=== PATIENT | female | born 1990 | race Caucasian/White ===

== ENCOUNTER 2017-06-25 16:18 | Emergency (ER) | payer OTHER, SELFPAY ==
[2017-06-25 16:34] VITALS: BP 138/53; PULSE 87; RESP 20; TEMP 37.2; O2SAT 98; BMI 29.8
--- NOTE | 2017-06-25 16:43 | HMH.EDGENADL ---
ED Disposition Clinical Impression: Vaginal bleeding Disposition: Home, Self-Care Condition on Discharge: Good Instructions: DI for Vaginal Bleeding Referrals: Hector Obando [Primary Care Provider] - Sandeep Sprague MD [Staff Physician] - (As arranged) - Critical Care Critical Care Time: No Attestation: On 06/25/17, the high probability of a clinically significant, sudden or life threatening deterioration of the following system(s) required my full and direct attention, intervention and personal management. The time I documented below is in addition to time spent performing reported procedures but includes the following listed in this critical care notation. Medical Decision Making Vital Signs: 06/25/17 16:34 Temperature 98.9 F Temperature Source Oral Pulse Rate [Right Radial] 87 Respiratory Rate 20 Blood Pressure [Right Arm] 138/53 Blood Pressure Mean [Right Arm] 81 Blood Pressure Source [Right Arm] Automatic Cuff Blood Pressure Position [Right Arm] Sitting 02 Sat by Pulse Oximetry 98 Oxygen Delivery Method Room Air - Lab Data Lab Results 06/25/17 16:55: WBC 6.6, RBC 5.10, Hgb 15.7, Hct 47.9 H, MCV 93.9, MCH 30.8, MCHC 32.8, RDW 12.2, Plt Count 271, MPV 7.4, Neut % (Auto) 45.3, Lymph % (Auto) 43.8, [place] % (Auto) 4.1, Eos % (Auto) 6.3, Baso % (Auto) 0.6, Neut # (Auto) 3.0, Lymph # (Auto) 2.9, [place] # (Auto) 0.3, Eos # (Auto) 0.4, Baso # (Auto) 0.0 06/25/17 16:55: Sodium 141, Potassium 3.8, Chloride 107, Carbon Dioxide 25, Anion Gap 12.8, BUN 14, Creatinine 0.77, Estimated Creat Clear 123, Estimated GFR 89, Est GFR ( Amer) 108, Glucose 117 H, Calcium 8.7, Total Bilirubin 0.1 L, AST 14 L, ALT 34, Alkaline Phosphatase 65, Total Protein 7.9, Albumin 3.8, Globulin 4.1 H, Albumin/Globulin Ratio 0.9 L 06/25/17 16:55: HCG, Quant 0 06/25/17 17:05: Urine HCG, Qual Negative Result diagrams: 06/25/17 16:55 06/25/17 16:55 - Crow Inquiry Pt receiving controlled substance: No Medical Decision Making Narrative: The patient has a quantitative beta hCG of 0. I discussed with her that there is not a definitive way to determine whether she had been and miscarried. Advised her to obtain her records from [facility] to see what testing had been done for at that time. General Adult HPI - General Chief complaint: Vaginal Bleeding Stated complaint: Preg, bleeding, cramping Mode of Arrival: Ambulatory Limitations: No Limitations Description of Symptoms (Recalled from ER Triage Doc. by RN): Patient states that she was and that last week on , she started having cramping and expelled a large amount of blood and mucus and had bleeding for about a week after that. - History of Present Illness HPI narrative: The patient had gallbladder surgery 3 weeks ago. At that time she says they did a urine test at [facility] and told her that she might be , but that she needed the gallbladder surgery anyway. She says she did not have a pelvic ultrasound or other testing. She did 4 home tests after that and they all were indeterminate, the most recent was 2 weeks ago. 6 days ago she had passage of a large clot and mucus and has been bleeding since then. She is call Dr. Sprague who advised her that she might have had a miscarriage and she has arranged follow-up. If she was at this time, she would be 4, para 1, Ab2. She is having some mild pelvic cramping. - Related Data Allergies Allergy/AdvReac Type Severity Reaction Status Date / Time latex [LATEX] Allergy Unknown Unverified 04/08/17 15:39 Sulfa (Sulfonamide Allergy Unknown Unverified 04/08/17 15:39 Antibiotics) [SULFA (SULFONAMIDE ANTIBIOTICS)] [facility] History I have reviewed the patient's past medical history: Yes - Social History Alcohol Intake: never - Psychiatric History Expresses thoughts of harming self/others: None Suicide Plan Descript
[2017-06-25 17:12] LABS: Urine Pregnancy, HCG Qual. Negative (Negative)
[2017-06-25 17:24] LABS: HCG,Quantitative 0 mIU/mL
[2017-06-25 17:32] LABS: Basophils % 0.6 % (0.1-2.0); Eosinophils # 0.4 K/mm3 (0.0-0.4); Eosinophils % 6.3 % (0.1-12.0); Hematocrit 47.9 % (37.0-47.0); Hemoglobin 15.7 g/dL (12.2-16.2); Lymphocytes # 2.9 K/mm3 (0.7-4.5); Lymphocytes % 43.8 K/mm3 (10-50); Mean Corpuscular HGB Conc 32.8 g/dL (31.8-35.4); Mean Corpuscular Hemoglobin 30.8 pg (27.0-31.2); Mean Corpuscular Volume 93.9 fl (81-99); Mean Platelet Volume 7.4 fl (7.4-10.4); Monocytes # 0.3 K/mm3 (0.1-1.0); Monocytes % 4.1 % (1.7-9.3); Neutrophils % 45.3 % (37.0-80.0); Platelet Count 271 K/mm3 (142-424); Red Cell Distribution Width 12.2 % (11.5-17.5); White Blood Count 6.6 K/mm3 (4.8-10.8)
[2017-06-25 17:35] LABS: Alanine Aminotransferase 34 U/L (12-78); Albumin Level 3.8 gm/dL (3.4-5.0); Albumin/Globulin Ratio 0.9 (1.1-1.8); Alkaline Phosphatase 65 U/L (46-116); Anion Gap 12.8 mEq/L (5-15); Aspartate Amino Transferase 14 U/L (15-37); Bilirubin,Total 0.1 mg/dL (0.2-1.0); Blood Urea Nitrogen 14 mg/dL (7-18); Calcium 8.7 mg/dL (8.5-10.1); Carbon Dioxide 25 mmol/L (21.0-32.0); Chloride 107 mmol/L (98-107); Creatinine Clearance Estimated 123 mL/min (0-300); Creatinine,Serum 0.77 mg/dL (0.55-1.02); Estimated Glomerular Filt Rate 89 ml/min (>60); GFR (African American) 108 ML/MIN (>60); Globulin 4.1 gm/dl (1.3-3.2); Glucose 117 mg/dL (74-106); Potassium 3.8 mmoL/L (3.5-5.1); Sodium 141 mmol/L (136-145); Total Protein,Serum 7.9 gm/dL (6.4-8.2)
[2017-06-25 17:56] VITALS: BP 116/66; PULSE 78; RESP 20; O2SAT 100
[2017-06-25 18:03] VITALS: BP 110/66; PULSE 80; RESP 20; TEMP 36.7; O2SAT 98
--- NOTE | 2017-06-25 18:05 | PC.NURSE ---
JJ BISHOP spoke with Dr. Montalvo at this time.
== END 2017-06-25 18:09 | disposition home or self-care (01) ==
PROVIDERS: Emergency Provider Emergency Medicine; Family Provider Family Medicine; PCP Family Medicine
DX: N93.9 Abnormal uterine and vaginal bleeding, unspecified (principal); R10.30 Lower abdominal pain, unspecified; Z88.2 Allergy status to sulfonamides; Z91.040 Latex allergy status
CPT/HCPCS: 80053; 81025; 84702; 85025; 99283

== ENCOUNTER → 2018-11-11 10:02 | Outpatient (CLI) | payer OTHER, SELFPAY ==
--- NOTE | 2018-11-11 10:12 | US_ITS ---
US transvaginal HISTORY: ITS.REASON: US T/V- Heavy Bleeding ORDERING PHYSICIAN: Sandeep Sprague MD PATIENT AGE: 27 years Comparison: None FINDINGS: Uterus measures 8.2 x 3.1 x 4.3 cm. Endometrial thickness is 3.2 mm. In the cervix area there are several small anechoic foci suggesting nabothian cysts. There is no cul-de-sac fluid. Left ovary is 2.4 x 1.4 x 1.9 cm with a few small follicles and normal blood flow. Right ovary is 2.6 x 1.6 x 2.6 cm with a a few small follicles and normal blood flow. Impression: Bilateral ovarian follicles. Several small nabothian cysts. No acute process.
== END ==
PROVIDERS: PCP Family Medicine; Visit Provider Nurse Practitioner Obstetrics & Gynecology
DX: N93.8 Other specified abnormal uterine and vaginal bleeding (principal)
CPT/HCPCS: 76830

== ENCOUNTER 2019-10-25 16:54 | Emergency (ER) | payer OTHER, SELFPAY ==
[2019-10-25 17:13] VITALS: BP 138/85; PULSE 92; RESP 19; TEMP 36.8; O2SAT 98; BMI 29.2
--- NOTE | 2019-10-25 17:18 | HMH.EDUTC ---
[facility] [place] Disposition Clinical Impression: Encounter for laboratory testing for COVID-19 virus Allergic rhinitis Qualifiers: Allergic rhinitis trigger: unspecified Allergic rhinitis seasonality: unspecified Qualified Code(s): J30.9 - Allergic rhinitis, unspecified Disposition: Home, Self-Care Condition on Discharge: Good Instructions: Mometasone Nasal [place], Preventing the Spread of Coronavirus Discharge Instructions Additional Instructions: *Monitor Temp, Over the counter Motrin or Tylenol as directed/as needed Tylenol every 4 hours and Motrin every 6 hours (as long as your family doctor has told you that you can take it) for fever or pain. and straight to ER if unable to lower temp less than 101.0 after medication given *Warm salt water gargles may help to soothe the throat *Throat Lozenges *Warm fluids like tea with honey may help to soothe the throat *Sleep elevated *Humidifier/Vaporizer *Nasonex 2 sprays in each nostril daily but be aware that it may take 2-3 days before you notice improvement Call back to [facility] on Fri to see if your Covid testing results are back and results no work until negative test Go home and self quarantine until negative result Follow up IMMEDIATELY for new or worsening symptoms or no Noticeable improvement over the next 48-72 hours. 911 for difficulty breathing or swallowing Prescriptions: Mometasone Furoate [Nasonex] 2 sprays NS DAILY #1 spray.pump Transmission Status: Received by [facility] Referrals: Hector Obando [Primary Care Provider] - As needed Forms: Work/School Release Medical Decision Making - Crow Inquiry Pt receiving controlled substance: No Crow was queried for this patient: No Vital Signs: 10/25/19 17:13 10/25/19 17:55 Temperature 98.3 F 98.3 F Temperature Source Oral Pulse Rate 92 H Pulse Rate [Right Brachial] 92 H Respiratory Rate 19 19 Blood Pressure 138/85 Blood Pressure [Right Arm] 138/85 Blood Pressure Mean [Right Arm] 102 Blood Pressure Source [Right Arm] Automatic Cuff Blood Pressure Position [Right Arm] Sitting 02 Sat by Pulse Oximetry 98 Oxygen Delivery Method Room Air Orders (Tests/Meds): ORDERS Category Date Time Status SARS-CoV-2, REN Stat Lab 10/25/19 17:20 Received [facility] [place] HPI - General Stated complaint: Wants COVID test Time Seen by Provider: 10/25/19 17:18 Mode of Arrival: Ambulatory Source of Information: Patient Limitations: No Limitations Description of Symptoms (Recalled from Triage Doc. by RN): PATIENT STATES SHE IS NEEDING A COVID-19 TEST TO RETURN TO WORK AFTER VACATION TO [place]; DENIES ANY SYMPTOMS HEENT Symptoms (Recalled from RN notes): No Resp Symptoms (Recalled from RN notes): No Skin Symptoms (Recalled from RN notes): No MS Symptoms (Recalled from RN notes): No Functional Status (Recalled from RN notes): WNL - History of Present Illness Provider Complaint: Patient states that she recently got back from vacation in [place] and has sesonal allergies States that she has been having clear drainage from her nose and her boss at work states that she cannot return to work without getting tested for COVID State that she isnt having any symptoms, denies fever, denies sore throat States that she is an everyday smoker and has smokers cough. - Related Data Home Medications Medication Instructions Recorded Confirmed Omeprazole [Omeprazole 40mg 40 mg PO BID 08/16/17 11/23/18 Capsule] cyclobenzaprine 10 mg tablet PO #30 tab 11/11/18 11/23/18 meclizine 25 mg tablet 25 mg PO DAILY PRN 11/11/18 11/23/18 phentermine 37.5 mg tablet 37.5 mg PO DAILY 11/11/18 11/23/18 ranitidine HCl 300 mg capsule 300 mg PO DAILY 11/11/18 11/23/18 sumatriptan succinate 100 mg tablet 100 mg PO Q2H PRN 11/11/18 11/23/18 topiramate 100 mg tablet 100 mg PO BID 11/11/18 11/23/18 venlafaxine 150 mg PO #30 cap 11/11/18 11/23/18 capsule,extended release 24 hr Previous Rx's Medication Instructions Recorde
[2019-10-25 17:55] VITALS: BP 138/85; PULSE 92; RESP 19; TEMP 36.8; O2SAT 98
[2019-10-27 13:22] LABS: Covid-19 Nasal PCR Sendout Lex NOT DETECTED
== END 2019-10-25 17:58 | disposition home or self-care (01) ==
PROVIDERS: Emergency Provider Nurse Practitioner; PCP Family Medicine
DX: Z03.818 Encounter for observation for suspected exposure to other biological agents ruled out (principal); J30.9 Allergic rhinitis, unspecified; Z88.2 Allergy status to sulfonamides; Z91.040 Latex allergy status; F17.210 Nicotine dependence, cigarettes, uncomplicated
CPT/HCPCS: 99201; U0004

== ENCOUNTER → 2021-02-02 15:25 | Outpatient (CLI) | payer OTHER, SELFPAY | PROVIDERS: PCP Family Medicine; Visit Provider Nurse Practitioner | DX: Z20.822 Contact with and (suspected) exposure to COVID-19 (principal); U07.1 COVID-19 | CPT/HCPCS: C9803; U0003; U0005 ==

== ENCOUNTER → 2021-04-12 09:03 | Outpatient (CLI) | payer OTHER, SELFPAY | PROVIDERS: Visit Provider Nurse Practitioner | DX: Z20.822 Contact with and (suspected) exposure to COVID-19 (principal) | CPT/HCPCS: C9803; U0003; U0005 ==

== ENCOUNTER 2021-04-16 10:07 | Emergency (ER) | payer OTHER, SELFPAY ==
[2021-04-16 11:00] VITALS: BP 122/74; PULSE 65; RESP 18; TEMP 36.8; O2SAT 98; BMI 23.6
--- NOTE | 2021-04-16 11:16 | HMH.EDUTC ---
[facility] [place] Impression: Sinusitis Qualifiers: Sinusitis location: unspecified location Chronicity: unspecified Qualified Code(s): J32.9 - Chronic sinusitis, unspecified Disposition: Home, Self-Care Condition on Discharge: Good Instructions: Sinusitis, DI for Sinusitis, DI for Nausea -- Adult Additional Instructions: *Monitor Temp, Over the counter Motrin or Tylenol as directed/as needed Tylenol every 4 hours and Motrin every 6 hours (as long as your family doctor has told you that you can take it) for fever or pain. and straight to ER if unable to lower temp less than 101.0 after medication given *Warm salt water gargles may help to soothe the throat *Throat Lozenges *Warm fluids like tea with honey may help to soothe the throat *Sleep elevated *Humidifier/Vaporizer Take medication as prescribed Return if needed Your throat swab was sent for culture. Those results are typically sent to your primary care. Be sure to follow up in 2-3 days with your family doctor/primary care physician if no improvement so they can review those result and treat if necessary. If you don?t have a primary care doctor, I recommend you get one but in the mean time, you will have to return to a walk in clinic Follow up IMMEDIATELY for new or worsening symptoms or no Noticeable improvement over the next 48-72 hours. 911 for difficulty breathing or swallowing Prescriptions: Amoxicillin/Potassium Clav [Augmentin 875-125 Tablet] 1 tab PO Q12H 7 Days #14 tab Transmission Status: Pending to [facility] #[id number] methylPREDNISolone [Medrol 4mg tab] 4 mg PO DIRECTED #21 tab Transmission Status: Pending to [facility] #[id number] Ondansetron [Zofran 4mg ODT] 4 mg PO TIDP PRN #12 tab PRN Reason: Nausea Transmission Status: Pending to [facility] #[id number] Referrals: Aracelis Reina PA [Primary Care Provider] - As needed Time of Disposition: 11:27 Medical Decision Making - Crow Inquiry Pt receiving controlled substance: No Crow was queried for this patient: No Vital Signs: 04/16/21 11:00 Temperature 98.3 F Temperature Source Oral Pulse Rate [Right Brachial] 65 Respiratory Rate 18 Blood Pressure [Right Arm] 122/74 Blood Pressure Mean [Right Arm] 90 Blood Pressure Source [Right Arm] Automatic Cuff Blood Pressure Position [Right Arm] Sitting 02 Sat by Pulse Oximetry 98 Oxygen Delivery Method Room Air - Lab Data Lab results reviewed: Yes: I reviewed the patient's lab results. Lab Results 04/16/21 11:09: Influenza Type A Ag Negative, Influenza Type B Ag Negative 04/16/21 11:09: Strep Scn Rapid Clinic Negative Orders (Tests/Meds): ORDERS Category Date Time Status Strep Screen Confirmation Stat Micro 04/16/21 11:09 [place] [facility] [place] - General Stated complaint: possible sinus infection Time Seen by Provider: 04/16/21 11:16 Mode of Arrival: Ambulatory Source of Information: Patient Limitations: No Limitations Description of Symptoms (Recalled from Triage Doc. by RN): PATIENT C/O SINUS PRESSURE AND HEADACHE X 3 DAYS HEENT Symptoms (Recalled from RN notes): Yes Resp Symptoms (Recalled from RN notes): No Skin Symptoms (Recalled from RN notes): No MS Symptoms (Recalled from RN notes): No Functional Status (Recalled from RN notes): WNL - History of Present Illness Provider Complaint: Patient states that she has been having sinus pain and pressure along with cough for over a week that has got worse over the last several days State that she thinks she may have a sinus infection States that she has also been having some nausea from the drainage and it has been making her stomach upset - Related Data Home Medications Medication Instructions Recorded Confirmed Omeprazole [Omeprazole 40mg 40 mg PO BID 08/16/17 05/24/20 Capsule] cyclobenzaprine 10 mg tablet PO #30 tab 11/11/18 05/24/20 meclizine 25 mg tablet 25 mg PO DAILY PRN 11/11/18 05/24/20 phentermine 37.5 m
[2021-04-16 11:20] LABS: UTC Strep Screen (Rapid) Negative (Negative)
[2021-04-16 11:21] LABS: UTC Influenza A Antigen Negative (Negative); UTC Influenza B Antigen Negative (Negative)
[2021-04-16 11:25] VITALS: BP 122/74; PULSE 65; RESP 18; TEMP 36.8; O2SAT 98
== END 2021-04-16 11:30 | disposition home or self-care (01) ==
PROVIDERS: Emergency Provider Nurse Practitioner; PCP Physician Assistant
DX: J32.9 Chronic sinusitis, unspecified (principal); Z87.442 Personal history of urinary calculi; Z79.899 Other long term (current) drug therapy
CPT/HCPCS: 87804; 87880; 99203; G0463

== ENCOUNTER → 2021-06-11 16:50 | Outpatient (CLI) | payer OTHER, SELFPAY | PROVIDERS: Visit Provider Nurse Practitioner Obstetrics & Gynecology | DX: L02.91 Cutaneous abscess, unspecified (principal) | CPT/HCPCS: 87070; 87205 ==

== ENCOUNTER 2021-06-25 12:11 | Emergency (ER) | payer OTHER, SELFPAY ==
[2021-06-25] VITALS (7 sets, daily range): BP systolic 116–153; BP diastolic 67–103; PULSE 52–97; RESP 16–20; TEMP 37.1; O2SAT 97–100; BMI 25.6
[2021-06-25 12:55] LABS: Basophils # 0.1 K/mm3 (0-0.2); Basophils % 1.4 % (0.1-2.0); Eosinophils # 0.3 K/mm3 (0.0-0.4); Eosinophils % 4.9 % (0.1-12.0); Hematocrit 46.2 % (37.0-47.0); Hemoglobin 15.4 g/dL (12.2-16.2); Lymphocytes # 2.7 K/mm3 (0.7-4.5); Lymphocytes % 40.1 % (10-50); Mean Corpuscular HGB Conc 33.5 g/dL (31.8-35.4); Mean Corpuscular Hemoglobin 31.8 pg (27.0-31.2); Mean Corpuscular Volume 95.2 fl (81-99); Mean Platelet Volume 7.5 fl (7.4-10.4); Monocytes # 0.2 K/mm3 (0.1-1.0); Monocytes % 3.1 % (1.7-9.3); Neutrophils # 3.3 K/mm3 (1.8-7.8); Neutrophils % 50.5 % (37.0-80.0); Platelet Count 284 K/mm3 (142-424); Red Blood Count 4.85 M/mm3 (4.20-5.40); Red Cell Distribution Width 12.9 % (11.5-17.5); White Blood Count 6.6 K/mm3 (4.8-10.8)
[2021-06-25 13:01] LABS: Alanine Aminotransferase 21 U/L (12-78); Albumin Level 4.7 g/dl (3.5-5.0); Albumin/Globulin Ratio 1.6 (1.1-1.8); Alkaline Phosphatase 53 U/L (38-126); Anion Gap 11.9 mEq/L (5-15); Aspartate Amino Transferase 26 U/L (14-36); Bilirubin,Total 0.5 mg/dl (0.2-1.3); Blood Urea Nitrogen 10 mg/dl (7-17); Carbon Dioxide 24 mmol/L (22.0-30.0); Chloride 109 mmol/L (98-107); Creatinine Clearance Estimated 135 mL/min (50-200); Estimated Glomerular Filt Rate 116 ml/min (>60); GFR (African American) 140 ML/MIN (>60); Globulin 2.9 g/dL (1.3-3.2); Glucose 99 mg/dl (74-100); Lipase 118 U/L (23-300); Potassium 3.9 mmoL/L (3.5-5.1); Sodium 141 mmol/L (136-145); Total Protein,Serum 7.6 g/dl (6.3-8.2)
[2021-06-25 13:10] LABS: HCG Qualitative, Serum Negative (Negative)
[2021-06-25 14:09] LABS: Microscopic, Urine URINE MICROSCOPIC (MICROSCOPIC)
[2021-06-25 14:28] LABS: Appearance,Urine CLEAR (Clear); Bilirubin,Urine Negative (Negative); Blood, Urine 2+ (Negative); Color,Urine YELLOW (Yellow); Glucose,Urine (UA) Negative (Negative); Ketones,Urine Negative (Negative); Leukocyte Esterase,Urine TRACE (Negative); Nitrate,Urine Negative (Negative); PH,Urine 6.5 (5.0-8.5); Protein,Urine Negative (Negative); Urobilinogen,Urine 0.2 EU/dl (0.2)
[2021-06-25 14:44] LABS: Bacteria,Urine Trace /lpf
--- NOTE | 2021-06-25 15:00 | HMH.EDGENADL ---
ED Disposition Clinical Impression: Viral syndrome Disposition: Home, Self-Care Condition on Discharge: Good Instructions: DI for Acute Abdominal Pain Additional Instructions: Please follow up with your primary team in 2-3 days for further management. Please take zofran as prescribed and tylenol/ibuprofen. Please return if symptoms return. Prescriptions: Ondansetron [Zofran 4mg ODT] 4 mg PO TIDP PRN #20 tab PRN Reason: Nausea Transmission Status: Received by [facility] #[id number] Referrals: Hector Obando [Primary Care Provider] - Forms: Work/School Release - Critical Care Critical Care Time: No Attestation: On 06/25/21, the high probability of a clinically significant, sudden or life threatening deterioration of the following system(s) required my full and direct attention, intervention and personal management. The time I documented below is in addition to time spent performing reported procedures but includes the following listed in this critical care notation. Medical Decision Making - Medical Records Medical records reviewed: Yes: I reviewed the patient's medical records. - Crow Inquiry Pt receiving controlled substance: No Vital Signs: 06/25/21 12:13 06/25/21 13:00 06/25/21 13:30 Temperature 98.8 F Temperature Source Oral Pulse Rate 69 59 L Pulse Rate [Left Radial] 97 H Respiratory Rate 16 Blood Pressure 127/103 H 150/92 H Blood Pressure [Right Arm] 153/88 H Blood Pressure Mean 107 111 Blood Pressure Mean [Right Arm] 109 Blood Pressure Source [Right Arm] Automatic Cuff Blood Pressure Position [Right Arm] Sitting 02 Sat by Pulse Oximetry 98 98 Oxygen Delivery Method Room Air 06/25/21 14:00 06/25/21 14:30 06/25/21 15:06 Temperature Temperature Source Pulse Rate 52 L 72 72 Pulse Rate [Left Radial] Respiratory Rate Blood Pressure 120/69 121/67 116/75 Blood Pressure [Right Arm] Blood Pressure Mean 85 82 Blood Pressure Mean [Right Arm] Blood Pressure Source [Right Arm] Blood Pressure Position [Right Arm] 02 Sat by Pulse Oximetry 97 100 100 Oxygen Delivery Method 06/25/21 15:10 Temperature 98.8 F Temperature Source Pulse Rate 69 Pulse Rate [Left Radial] Respiratory Rate 20 Blood Pressure 116/75 Blood Pressure [Right Arm] Blood Pressure Mean Blood Pressure Mean [Right Arm] Blood Pressure Source [Right Arm] Blood Pressure Position [Right Arm] 02 Sat by Pulse Oximetry Oxygen Delivery Method Room Air - Lab Data Lab results reviewed: Yes: I reviewed the patient's lab results. Lab Results 06/25/21 12:23: WBC 6.6, RBC 4.85, Hgb 15.4, Hct 46.2, MCV 95.2, MCH 31.8 H, MCHC 33.5, RDW 12.9, Plt Count 284, MPV 7.5, Neut % (Auto) 50.5, Lymph % (Auto) 40.1, [place] % (Auto) 3.1, Eos % (Auto) 4.9, Baso % (Auto) 1.4, Neut # (Auto) 3.3, Lymph # (Auto) 2.7, [place] # (Auto) 0.2, Eos # (Auto) 0.3, Baso # (Auto) 0.1 06/25/21 12:23: Sodium 141, Potassium 3.9, Chloride 109 H, Carbon Dioxide 24, Anion Gap 11.9, BUN 10, Creatinine 0.60, Estimated Creat Clear 135, Estimated GFR 116, Est GFR ( Amer) 140, Glucose 99, Calcium 9.0, Total Bilirubin 0.5, AST 26, ALT 21, Alkaline Phosphatase 53, Total Protein 7.6, Albumin 4.7, Globulin 2.9, Albumin/Globulin Ratio 1.6, Lipase 118 06/25/21 12:23: Serum HCG, Qual Negative 06/25/21 12:33: Urine Color Yellow, Urine Appearance Clear, Urine pH 6.5, Ur Specific [place] 1.020, Urine Protein Negative, Urine Glucose (UA) Negative, Urine Ketones Negative, Urine Blood 2+, Urine Nitrate Negative, Urine Bilirubin Negative, Urine Urobilinogen 0.2, Ur Leukocyte Esterase Trace, Urine RBC 5-10, Urine WBC 3-5, Ur Squamous Epith Cells 5-10, Urine Bacteria Trace Result diagrams: 06/25/21 12:23 06/25/21 12:23 Orders (Tests/Meds): ED MEDICATIONS Discontinued Medications Generic Name Dose Route Start Last Admin Trade Name Freq PRN Reason Stop Dose Admin Acetaminophen 1,000 mg 06/25/21 12:42
== END 2021-06-25 15:15 | disposition home or self-care (01) ==
PROVIDERS: Emergency Provider Student in an Organized Health Care Education/Training Program; PCP Family Medicine
DX: B34.9 Viral infection, unspecified (principal); F17.200 Nicotine dependence, unspecified, uncomplicated; Z79.899 Other long term (current) drug therapy; Z88.2 Allergy status to sulfonamides; Z91.040 Latex allergy status; Z87.442 Personal history of urinary calculi; Z87.898 Personal history of other specified conditions; Z82.49 Family history of ischemic heart disease and other diseases of the circulatory system; Z80.9 Family history of malignant neoplasm, unspecified; Z86.11 Personal history of tuberculosis
CPT/HCPCS: 80053; 81001; 83690; 84703; 85025; 96374; 99283; J2405

== ENCOUNTER → 2021-09-24 12:50 | Outpatient (CLI) | payer OTHER, SELFPAY ==
[2021-09-24 13:36] LABS: HCG,Quantitative 277 mIU/ml (0-5.42)
== END ==
PROVIDERS: PCP Family Medicine; Visit Provider Obstetrics & Gynecology
DX: N92.6 Irregular menstruation, unspecified (principal)
CPT/HCPCS: 36415; 84702

== ENCOUNTER → 2021-09-26 08:02 | Outpatient (CLI) | payer OTHER, SELFPAY ==
[2021-09-26 09:13] LABS: HCG,Quantitative 790 mIU/ml (0-5.42)
[2021-09-27 08:22] LABS: Progesterone 17.1 ng/mL (.)
== END ==
PROVIDERS: PCP Family Medicine; Visit Provider Obstetrics & Gynecology
DX: Z34.90 Encounter for supervision of normal pregnancy, unspecified, unspecified trimester (principal)
CPT/HCPCS: 36415; 84144; 84702

== ENCOUNTER 2021-10-08 08:14 | Emergency (ER) | payer OTHER, SELFPAY ==
[2021-10-08 08:15] VITALS: BP 116/78; PULSE 109; RESP 18; TEMP 36.7; O2SAT 100; BMI 23.6
--- NOTE | 2021-10-08 08:55 | HMH.EDGENADL ---
ED Disposition Clinical Impression: Constipation Qualifiers: Constipation type: slow transit constipation Qualified Code(s): K59.01 - Slow transit constipation Disposition: Home, Self-Care Condition on Discharge: Good Instructions: DI for Constipation Prescriptions: Psyllium Husk [Metamucil] 1 tbsp PO TID #660 gm Transmission Status: P[facility] to [facility] Referrals: Hector Obando [Primary Care Provider] - - Critical Care Critical Care Time: No Attestation: On 10/08/21, the high probability of a clinically significant, sudden or life threatening deterioration of the following system(s) required my full and direct attention, intervention and personal management. The time I documented below is in addition to time spent performing reported procedures but includes the following listed in this critical care notation. Medical Decision Making - Medical Records Medical records reviewed: Yes: I reviewed the patient's medical records. - Crow Inquiry Pt receiving controlled substance: No Vital Signs: 10/08/21 08:15 Temperature 98.1 F Temperature Source Oral Pulse Rate [Left Radial] 109 H Respiratory Rate 18 Blood Pressure [Left Arm] 116/78 Blood Pressure Mean [Left Arm] 90 Blood Pressure Source [Left Arm] Automatic Cuff Blood Pressure Position [Left Arm] Sitting 02 Sat by Pulse Oximetry 100 Oxygen Delivery Method Room Air - Lab Data Lab Results 10/08/21 08:48: WBC 7.7, RBC 4.64, Hgb 15.1, Hct 43.7, MCV 94.1, MCH 32.6 H, MCHC 34.7, RDW 13.5, Plt Count 308, MPV 7.9, Neut % (Auto) 67.2, Lymph % (Auto) 24.4, [place] % (Auto) 4.6, Eos % (Auto) 2.0, Baso % (Auto) 1.8, Neut # (Auto) 5.1, Lymph # (Auto) 1.9, [place] # (Auto) 0.4, Eos # (Auto) 0.2, Baso # (Auto) 0.1 10/08/21 08:50: Urine Color Yellow, Urine Appearance Sl cloudy, Urine pH 7.0, Ur Specific [place] 1.015, Urine Protein Negative, Urine Glucose (UA) Negative, Urine Ketones Negative, Urine Blood 1+, Urine Nitrate Negative, Urine Bilirubin Negative, Urine Urobilinogen 1.0, Ur Leukocyte Esterase Negative, Urine RBC Occasional, Urine WBC Occasional, Ur Squamous Epith Cells 5-10, Amorphous Sediment 1+, Urine Bacteria 1+ 10/08/21 09:35: Sodium 138, Potassium 3.6, Chloride 108 H, Carbon Dioxide 24, Anion Gap 9.6, BUN 9, Creatinine 0.60, Estimated Creat Clear 120, Estimated GFR 116, Est GFR ( Amer) 140, Glucose 98, Calcium 8.9, Total Bilirubin 0.4, AST 26, ALT 17, Alkaline Phosphatase 55, Total Protein 6.9, Albumin 4.0, Globulin 2.9, Albumin/Globulin Ratio 1.4, HCG, Quant [id number] H Result diagrams: 10/08/21 08:48 10/08/21 09:35 Orders (Tests/Meds): ED MEDICATIONS Generic Name Dose Route Start Last Admin Trade Name Freq PRN Reason Stop Dose Admin Sodium Chloride 10 ml 10/08/21 08:48 Sodium Chloride 0.9% 10ml Flush Syringe IV 11/07/21 08:47 NEEDED PRN Maintain IV Site Discontinued Medications Generic Name Dose Route Start Last Admin Trade Name Freq PRN Reason Stop Dose Admin Al Hydrox/Mg Hydrox/Simethicone 30 ml 10/08/21 08:35 10/08/21 08:52 Aluminum/Magnesium/Simethicone 30ml Udc PO 10/08/21 08:36 30 ml ONCE ONE Administration Diphenhydramine HCl 25 mg 10/08/21 08:34 10/08/21 08:52 Diphenhydramine 50mg/Ml Vial IV 10/08/21 08:35 25 mg ONCE ONE Administration Sodium Chloride 1,000 mls @ 999 mls/hr 10/08/21 08:45 10/08/21 08:52 Sod Chlor 0.9% 1000ml Bag IV 10/08/21 09:45 999 mls/hr .Q1H1M RADHA Administration - Reevaluation(s) Time: 11:07 Reevaluation #1: On reevaluation, patient is feeling better. Repeat abdominal examination does not show any evidence of acute abdomen or tenderness. Patient's symptoms are consistent with general constipation. I did instruct her to use performing laxatives as well as increase her fluid intake. Urinalysis showed some contamination, however her beta hCG was appropriate. Patient is to follow-up with [facility] in 48 hours. Given strict return precautions.
[2021-10-08 08:58] LABS: Microscopic, Urine URINE MICROSCOPIC (MICROSCOPIC)
[2021-10-08 08:58] LABS: Basophils # 0.1 K/mm3 (0-0.2); Basophils % 1.8 % (0.1-2.0); Eosinophils # 0.2 K/mm3 (0.0-0.4); Hematocrit 43.7 % (37.0-47.0); Hemoglobin 15.1 g/dL (12.2-16.2); Lymphocytes # 1.9 K/mm3 (0.7-4.5); Lymphocytes % 24.4 % (10-50); Mean Corpuscular HGB Conc 34.7 g/dL (31.8-35.4); Mean Corpuscular Hemoglobin 32.6 pg (27.0-31.2); Mean Corpuscular Volume 94.1 fl (81-99); Mean Platelet Volume 7.9 fl (7.4-10.4); Monocytes # 0.4 K/mm3 (0.1-1.0); Monocytes % 4.6 % (1.7-9.3); Neutrophils # 5.1 K/mm3 (1.8-7.8); Neutrophils % 67.2 % (37.0-80.0); Platelet Count 308 K/mm3 (142-424); Red Blood Count 4.64 M/mm3 (4.20-5.40); Red Cell Distribution Width 13.5 % (11.5-17.5); White Blood Count 7.7 K/mm3 (4.8-10.8)
[2021-10-08 09:02] LABS: Appearance,Urine SL CLOUDY (Clear); Bilirubin,Urine Negative (Negative); Blood, Urine 1+ (Negative); Color,Urine YELLOW (Yellow); Glucose,Urine (UA) Negative (Negative); Ketones,Urine Negative (Negative); Leukocyte Esterase,Urine Negative (Negative); Nitrate,Urine Negative (Negative); Protein,Urine Negative (Negative); Specific Gravity, Urine 1.015 (1.005-1.030)
[2021-10-08 09:15] LABS: Amorphous Sediment,Urine 1+ /lpf; Bacteria,Urine 1+ /lpf; RBC,Urine Occasional #/hpf (0-3); WBC,Urine Occasional #/hpf (0-3)
[2021-10-08 10:03] LABS: Alanine Aminotransferase 17 U/L (12-78); Albumin/Globulin Ratio 1.4 (1.1-1.8); Alkaline Phosphatase 55 U/L (38-126); Anion Gap 9.6 mEq/L (5-15); Aspartate Amino Transferase 26 U/L (14-36); Bilirubin,Total 0.4 mg/dl (0.2-1.3); Blood Urea Nitrogen 9 mg/dl (7-17); Calcium 8.9 mg/dl (8.4-10.2); Carbon Dioxide 24 mmol/L (22.0-30.0); Chloride 108 mmol/L (98-107); Creatinine Clearance Estimated 120 mL/min (50-200); Estimated Glomerular Filt Rate 116 ml/min (>60); GFR (African American) 140 ML/MIN (>60); Globulin 2.9 g/dL (1.3-3.2); Glucose 98 mg/dl (74-100); Potassium 3.6 mmoL/L (3.5-5.1); Sodium 138 mmol/L (136-145); Total Protein,Serum 6.9 g/dl (6.3-8.2)
[2021-10-08 10:44] LABS: HCG,Quantitative 47560 mIU/ml (0-5.42)
[2021-10-08 11:28] VITALS: BP 124/75; PULSE 86; RESP 18; TEMP 36.7; O2SAT 99
== END 2021-10-08 11:28 | disposition home or self-care (01) ==
PROVIDERS: Emergency Provider Emergency Medicine; PCP Family Medicine
DX: O99.611 Diseases of the digestive system complicating pregnancy, first trimester (principal); K59.01 Slow transit constipation; O26.831 Pregnancy related renal disease, first trimester; N20.0 Calculus of kidney; O99.331 Smoking (tobacco) complicating pregnancy, first trimester; Z79.899 Other long term (current) drug therapy; Z88.2 Allergy status to sulfonamides; Z91.040 Latex allergy status; Z3A.01 Less than 8 weeks gestation of pregnancy
CPT/HCPCS: 52330; 80053; 81001; 84702; 85025; 96361; 96374; 99284

== ENCOUNTER → 2021-10-15 17:12 | Outpatient (CLI) | payer OTHER, SELFPAY ==
[2021-10-15 17:00] LABS: Microscopic, Urine URINE MICROSCOPIC (MICROSCOPIC)
[2021-10-15 20:22] LABS: Appearance,Urine CLEAR (Clear); Bilirubin,Urine Negative (Negative); Blood, Urine TRACE-L (Negative); Color,Urine YELLOW (Yellow); Glucose,Urine (UA) Negative (Negative); Ketones,Urine Negative (Negative); Leukocyte Esterase,Urine Negative (Negative); Nitrate,Urine Negative (Negative); Protein,Urine Negative (Negative)
[2021-10-17 21:08] LABS: Neisseria gonorrhoeae, NAA Negative (Negative)
== END ==
PROVIDERS: Visit Provider Obstetrics & Gynecology
DX: Z34.90 Encounter for supervision of normal pregnancy, unspecified, unspecified trimester (principal)
CPT/HCPCS: 81001; 87491; 87591

== ENCOUNTER → 2021-11-19 13:25 | Outpatient (CLI) | payer OTHER, SELFPAY ==
[2021-11-19 14:59] LABS: Basophils # 0.1 K/mm3 (0-0.2); Basophils % 0.7 % (0.1-2.0); Eosinophils # 0.1 K/mm3 (0.0-0.4); Eosinophils % 1.1 % (0.1-12.0); Hematocrit 42.5 % (37.0-47.0); Lymphocytes # 2.5 K/mm3 (0.7-4.5); Lymphocytes % 27.9 % (10-50); Mean Corpuscular HGB Conc 32.9 g/dL (31.8-35.4); Mean Corpuscular Volume 94.4 fl (81-99); Mean Platelet Volume 7.4 fl (7.4-10.4); Monocytes # 0.4 K/mm3 (0.1-1.0); Monocytes % 3.9 % (1.7-9.3); Neutrophils % 66.4 % (37.0-80.0); Platelet Count 360 K/mm3 (142-424)
[2021-11-21 06:14] LABS: HIV Screen 4th Generation wRfx Non Reactive (Non Reactive); Hepatitis B Surface Antigen Negative (Negative); Hepatitis C Antibody <0.1 s/co ratio (0.0-0.9)
[2021-11-21 11:25] LABS: Rapid Plasma Reagin Ab Titer Non Reactive (NonRea<1:1)
== END ==
PROVIDERS: PCP Family Medicine; Visit Provider Obstetrics & Gynecology
DX: Z34.90 Encounter for supervision of normal pregnancy, unspecified, unspecified trimester (principal)
CPT/HCPCS: 36415; 85025; 86592; 86703; 86762; 86850; 87340; 87380; G0432

== ENCOUNTER → 2022-01-29 09:36 | Outpatient (CLI) | payer OTHER, SELFPAY ==
--- NOTE | 2022-01-29 09:40 | US_ITS ---
FINAL REPORT CLINICAL HISTORY: 20 week anatomy scan FINDINGS: There is a single live intrauterine gestation. Presentation is breech. The cervix is closed and measures 5 cm. Placenta is anterior, grade 1. movement is noted. Heart rate is measured at 150 beats per minute. Three-vessel cord with satisfactory umbilical cord insertion. Four-chamber heart is noted. brain and ventricles are unremarkable. Chest and diaphragm are unremarkable. ABDOMEN: Both kidneys are unremarkable. Stomach is unremarkable. SPINE: No anomalies identified. Both arms and legs noted. AMNIOTIC FLUID: Appropriate amount. MEASUREMENTS: ULTRASOUND AGE: 21 weeks 6 days. GESTATION AGE: 22 weeks 1 days. ESTIMATED WEIGHT: 477 g GROWTH PERCENTILE: 42% LMP percentile BPD: 5.2 cm corresponding with 21 weeks 5 days. OFD: 6.8 cm corresponding with 22 weeks 2 days. HC: 19 cm corresponding with 21 weeks 2 days. AC: 17.8 cm corresponding with 22 weeks 5 days. FL: 3.7 cm corresponding with 21 weeks 5 days. CEREBELLUM: 2.2 cm corresponding with 21 weeks 4 days. HUMERUS: 3.6 cm corresponding with 22 weeks 4 days. HC/AC: 1.07 CI: 76% FL/BPD: 71% FL/AC: 21% IMPRESSION: Single living IUP with an ultrasound age of 21 weeks 6 days. No gross anomalies noted. Reviewed, Interpreted and Dictated by Jose Luong III, MD Transcribed by Elena Noel Authenticated and [facility]
== END ==
PROVIDERS: PCP Family Medicine; Visit Provider Obstetrics & Gynecology
DX: Z34.90 Encounter for supervision of normal pregnancy, unspecified, unspecified trimester (principal); Z3A.20 20 weeks gestation of pregnancy
CPT/HCPCS: 76811

== ENCOUNTER → 2022-04-17 12:39 | Outpatient (CLI) | payer OTHER, SELFPAY ==
[2022-04-17 13:10] LABS: Basophils % 0.6 % (0.1-2.0); Eosinophils # 0.1 K/mm3 (0.0-0.4); Eosinophils % 0.8 % (0.1-12.0); Hematocrit 35.9 % (37.0-47.0); Hemoglobin 12.4 g/dL (12.2-16.2); Lymphocytes # 1.7 K/mm3 (0.7-4.5); Lymphocytes % 25.4 % (10-50); Mean Corpuscular HGB Conc 34.7 g/dL (31.8-35.4); Mean Corpuscular Hemoglobin 31.9 pg (27.0-31.2); Mean Corpuscular Volume 91.9 fl (81-99); Mean Platelet Volume 8.2 fl (7.4-10.4); Monocytes # 0.3 K/mm3 (0.1-1.0); Monocytes % 4.4 % (1.7-9.3); Neutrophils # 4.5 K/mm3 (1.8-7.8); Neutrophils % 68.8 % (37.0-80.0); Platelet Count 267 K/mm3 (142-424); Red Cell Distribution Width 13.3 % (11.5-17.5); White Blood Count 6.5 K/mm3 (4.8-10.8)
[2022-04-17 13:19] LABS: Glucose,Fasting 105 mg/dl (74-100)
[2022-04-17 14:37] LABS: Glucose 1 Hour 140 mg/dL (74-100)
== END ==
PROVIDERS: PCP Family Medicine; Visit Provider Obstetrics & Gynecology
DX: Z34.90 Encounter for supervision of normal pregnancy, unspecified, unspecified trimester (principal); Z3A.16 16 weeks gestation of pregnancy
CPT/HCPCS: 36415; 82951; 85025

== ENCOUNTER → 2022-04-29 07:56 | Outpatient (CLI) | payer OTHER, SELFPAY ==
[2022-04-29 08:30] LABS: Glucose,Fasting 98 mg/dl (74-100)
[2022-04-29 10:21] LABS: Glucose 1 Hour 136 mg/dL (74-100)
[2022-04-29 11:09] LABS: Glucose 2 Hour 104 mg/dL (74-100)
[2022-04-29 12:17] LABS: Glucose 3 Hour 146 mg/dL (74-100)
== END ==
PROVIDERS: Visit Provider Obstetrics & Gynecology
DX: R73.09 Other abnormal glucose (principal)
CPT/HCPCS: 36415; 82951

== ENCOUNTER → 2022-05-09 10:05 | Outpatient (CLI) | payer OTHER, SELFPAY ==
--- NOTE | 2022-05-09 10:05 | US_ITS ---
FINAL REPORT CLINICAL HISTORY: gestational diabetes and TROY FINDINGS: There is a single live intrauterine gestation. The cervix is closed and measures 3.7 cm. Placenta is anterior. movement is noted. Heart rate is detected at 136 beats per minute. Three-vessel cord is normal. Four-chamber heart is noted. AMNIOTIC FLUID: Normal at 12.08 cm MEASUREMENTS: ULTRASOUND AGE: 34 weeks 5 days. GESTATION AGE: 36 weeks 3 days. ESTIMATED WEIGHT: 2565 g GROWTH PERCENTILE: 18 % BPD: 8.58 cm corresponding to 34 weeks 5 days. OFD: 10.86 cm corresponding to 34 weeks 6 days. HC: 30.75 cm corresponding to 34 weeks 3 days. AC: 31.88 cm corresponding to 35 weeks 6 days. FL: 6.56 cm corresponding to 33 weeks 6 days. HC/AC: 0.96 CI: 79% FL/BPD: 76% FL/AC: 21% BIOPHYSICAL PROFILE SCORE Breathin Movement: 2 Tone: 2 Fluid volume: 2 Biophysical profile score 8/8 IMPRESSION: Single living IUP with an ultrasound age of 36 weeks 5 days. Biophysical profile score 8/8. Reviewed, Interpreted and Dictated by Carlee Muñiz MD Transcribed by Shahnaz Zabala Authenticated and [facility]
== END ==
PROVIDERS: PCP Obstetrics & Gynecology; Visit Provider Obstetrics & Gynecology
DX: O24.419 Gestational diabetes mellitus in pregnancy, unspecified control (principal); O28.8 Other abnormal findings on antenatal screening of mother
CPT/HCPCS: 76816; 76819; 86403

== ENCOUNTER → 2022-05-09 12:53 | Outpatient (CLI) | payer OTHER, SELFPAY | PROVIDERS: PCP Obstetrics & Gynecology; Visit Provider Obstetrics & Gynecology | DX: Z34.90 Encounter for supervision of normal pregnancy, unspecified, unspecified trimester (principal) ==

== ENCOUNTER 2022-05-22 01:14 | Inpatient (IN) | payer OTHER, SELFPAY ==
[2022-05-22 00:39] VITALS: BP 155/76; PULSE 53; RESP 18; TEMP 36.7; O2SAT 99; BMI 30.2
[2022-05-22 00:41] VITALS: BMI 30.2
[2022-05-22 01:31] LABS: Coronavirus 19, PCR Not Detected (NotDetected); Influenza A, PCR Not Detected (NotDetected); Influenza B, PCR Not Detected (NotDetected)
--- NOTE | 2022-05-22 01:35 | EXP.LABOR.NO ---
Labor Note Subjective: Date: 05/22/22 Time: 01:35 regular contraction Objective: NST:: Reactive Contractions:: every 2-3 minutes Cervical Dilation:: 7-8 Effacement:: 100% Station: +1 Membranes: artificially ruptured Fetus: Monitoring?: Yes monitoring type:: Internal Comment:: I placed a scalp clip and an IUPC. Assessment: Labor progressing?: Yes Cephalopelvic disproportion?: No All Active Problems (Updated 04/30/22 @ 10:56 by Nanda Telles DO) GDM (gestational diabetes mellitus) (Acute) with 32 completed weeks gestation (Acute) Maternal tobacco use, antepartum (Acute) Depression (Acute) Anxiety (Acute) Screening for genetic disease carrier status (Acute) History of one miscarriage (Chronic) Nausea and vomiting during (Acute) Marijuana use (Acute) Electronic cigarette use (Chronic) History of renal calculi (Acute) (Acute) Plan: Anesthesia for epidural?: No Continue to labor down?: Yes Plan for ?: No Continue to monitor?: Yes Start pushing?: No Continue pushing?: No Comment:: She came in in active labor with a bulging bag of water. She was found to be 8 to 9 cm. After rupturing her membranes she was more like 7 to 8 cm. She is 100% of the baby's head is really low. I inserted an IVC as well as a scalp clip she is having some decelerations with contractions. We will start an amnioinfusion. We will expect a vaginal delivery.
[2022-05-22 01:38] LABS: Basophils # 0.1 K/mm3 (0-0.2); Basophils % 0.6 % (0.1-2.0); Eosinophils # 0.1 K/mm3 (0.0-0.4); Eosinophils % 0.4 % (0.1-12.0); Hemoglobin 15.1 g/dL (12.2-16.2); Lymphocytes # 1.2 K/mm3 (0.7-4.5); Lymphocytes % 9.1 % (10-50); Mean Corpuscular HGB Conc 32.9 g/dL (31.8-35.4); Mean Corpuscular Hemoglobin 29.7 pg (27.0-31.2); Mean Corpuscular Volume 90.2 fl (81-99); Mean Platelet Volume 7.9 fl (7.4-10.4); Monocytes # 0.4 K/mm3 (0.1-1.0); Neutrophils # 11.4 K/mm3 (1.8-7.8); Platelet Count 292 K/mm3 (142-424); Red Blood Count 5.09 M/mm3 (4.20-5.40); Red Cell Distribution Width 14.1 % (11.5-17.5); White Blood Count 13.1 K/mm3 (4.8-10.8)
[2022-05-22 01:41] LABS: MANUAL DIFFERENTIAL MANUAL DIFFERENTIAL (MANUAL DIFF)
--- NOTE | 2022-05-22 02:07 | EXP.DN ---
Delivery Note Delivery Date:: 05/22/22 Delivery Time:: 01:59 Anesthesia Type: None Was labor medically induced?: No Induction method: none Gestational age (weeks): 38 delivered prior to 39 weeks?: Yes Justification for early elective delivery:: Active Labor Gender: Male at 1 minute: 8 at 5 minutes: 9 Delivery Procedure:: She is a 31-year-old 2 para 1 who came in having contractions, nausea vomiting. She was found to be 8 to 9 cm dilated. She subsequently had her membranes ruptured and a clip and IUPC placed. She progressed rapidly to full dilation and delivered spontaneously a liveborn male child at 1:59 AM on the morning of May 22, 2022. On delivery the head it was noted that there was a loose nuchal cord which was easily reduced. This was followed by the anterior shoulder and the rest of the 's body atraumatically. The baby was vigorous and cried spontaneously. We allowed the cord to continue to pulsate and the cord was then doubly clamped and cut. The baby was then placed on the mother's abdomen for further care. The nurses assigned Apgars of 8 at 1 minute and 9 at 5 minutes. She received IV oxytocin using gentle traction on the cord and countertraction the fundus I was able to easily the deliver the placenta intact. It had a normal three-vessel cord. There were no perineal or vaginal lacerations. Estimated blood loss was approximately 250 cc. Placental Delivery Description: Spontaneous
--- NOTE | 2022-05-22 02:09 | EXP.HP ---
History of Present Illness *Admission Date: 05/22/22 *Reason for visit:: Active labor *History of present illness: She is a 31-year-old 2 para 1 at 38+ weeks gestational age. She called saying she was having nausea and vomiting as well as occasional contractions. She arrived in active labor and was found to be 9 cm dilated with a bulging bag of water. [facility] Disclaimer: The information contained in this section may have been updated after the patient was seen, as this information can be updated by other users. Medical History Anxiety Depression GDM (gestational diabetes mellitus) Maternal tobacco use, antepartum with 32 completed weeks gestation Sciatica Family History Tuberculosis Diabetes Coronary artery disease Anemia Hyperlipidemia Kidney disease Heart attack FHx: mental illness Bleeding disorder Cancer Hypertension Thyroid disorder Stroke Social History Smoking Status: Current some day smoker tobacco type: e-cigarettes alcohol intake: never substance use type: denies use and marijuana current occupational status: unemployed Travel in the last 8 weeks: None Review of Systems Review of Systems Review of systems:: pertinent systems reviewed and negative unless documented below Meds Home Medications and Allergies Home Medications Medication Instructions Recorded Confirmed Type cyclobenzaprine 5 mg tablet 5 mg PO TID PRN muscle spasm #20 10/24/21 05/16/22 Rx tabs famotidine 20 mg tablet 20 mg PO DAILY 10/24/21 05/16/22 History pediatric multivitamin no.114-iron 2 tab PO DAILY 10/24/21 05/16/22 History fumarate 15 mg chewable tablet (Child Chewable Vitamins with Iron) promethazine 25 mg tablet 25 mg PO TID PRN nausea and 11/16/21 05/16/22 Rx vomiting #20 tabs buspirone 10 mg tablet 10 mg PO BID 04/16/22 05/16/22 History blood-glucose meter (Blood Glucose #1 ea 04/29/22 05/16/22 Rx Monitoring kit) ondansetron 4 mg disintegrating 4 mg PO TIDP PRN Nausea #20 tabs 04/30/22 05/16/22 Rx tablet New Prescriptions to Start Prescriptions: Allergies Allergy/AdvReac Type Severity Reaction Status Date / Time latex [LATEX] Allergy Unknown Verified 05/16/22 10:45 Sulfa (Sulfonamide Allergy Unknown Verified 05/16/22 10:45 Antibiotics) [SULFA (SULFONAMIDE ANTIBIOTICS)] Exam Data for Last 24 hours Vital signs and Labs for Last 24 Hours: Temp Pulse Resp BP Pulse Ox 98.1 F 53 L 18 155/76 H 99 05/22/22 00:39 05/22/22 00:39 05/22/22 00:39 05/22/22 00:39 05/22/22 00:39 Laboratory Results - last 24 hr 05/22/22 01:20: WBC 13.1 H, RBC 5.09, Hgb 15.1, Hct 46.0, MCV 90.2, MCH 29.7, MCHC 32.9, RDW 14.1, Plt Count 292, MPV 7.9, Neut % (Auto) 87.0 H, Lymph % (Auto) 9.1 L, [place] % (Auto) 3.0, Eos % (Auto) 0.4, Baso % (Auto) 0.6, Neut # (Auto) 11.4 H, Lymph # (Auto) 1.2, [place] # (Auto) 0.4, Eos # (Auto) 0.1, Baso # (Auto) 0.1 I & O for Last 24 hours: Intake & Output 05/19/22 05/20/22 05/21/22 05/22/22 11:59 11:59 11:59 11:59 Weight 160 lb Constitutional Constitutional: no acute distress *Routine HEENT Exam Head: Present normocephalic Eye: Present EOMI and PERRL ENT: Present mucous membranes moist *Routine Neck Exam Neck: Present supple; Absent lymphadenopathy *Routine Respiratory Exam Respiratory: Present CTA bilaterally *Routine Cardiovascular Exam Cardiovascular: Present RRR *Routine Abdominal Exam Abdominal: Present soft and normoactive bowel sounds; Absent tenderness *Routine Rectal Exam Rectal:: deferred *Routine Genitalia Exam Genitalia:: deferred *Routine Extremities Exam Extremities: Absent cyanosis, clubbing or edema *Routine Skin Exam Skin: Present warm; Absent rash *Routine Neurological Exam Neurological: Present alert and oriented X3 Assessment a
[2022-05-22 02:21] LABS: POC Glucose,Bedside 113 (70-110)
[2022-05-22 03:25] LABS: Eosinophils % 1 % (0-3); Lymphocytes % 10 % (10-50); Monocytes % 3 % (2-9); Neutrophils % 85 % (42-76); Total Cells Counted 100
[2022-05-22 03:26] LABS: Platelet Estimate Normal; RBC Morphology Normal
[2022-05-22 05:44] LABS: Microscopic, Urine URINE MICROSCOPIC (MICROSCOPIC)
[2022-05-22 05:51] LABS: Appearance,Urine CLEAR (Clear); Bilirubin,Urine Negative (Negative); Blood, Urine 3+ (Negative); Color,Urine YELLOW (Yellow); Glucose,Urine (UA) Negative (Negative); Ketones,Urine 3+ (Negative); Leukocyte Esterase,Urine Negative (Negative); Nitrate,Urine Negative (Negative); Protein,Urine TRACE (Negative); Specific Gravity, Urine >= 1.030 (1.005-1.030); Urobilinogen,Urine 0.2 EU/dl (0.2)
[2022-05-22 06:42] LABS: Bacteria,Urine Trace /lpf; Barbiturates Screen,Urine Negative ng/ml (<200); RBC,Urine 50-100 #/hpf (0-3); Squamous Epithelial Cell,Urine Occasional #/hpf (0-5); WBC,Urine Occasional #/hpf (0-3)
[2022-05-22 06:43] LABS: Amphetamine/Metha Screen,Urine Negative ng/ml (<1000); Benzodiazepines Screen,Urine Negative ng/ml (<200)
[2022-05-22 06:44] LABS: Cannabinoid Screen,Urine Positive ng/ml (<50)
[2022-05-22 06:45] LABS: Cocaine Screen,Urine Negative ng/ml (<300); Methadone Screen,Urine Negative ng/ml (<300)
[2022-05-22 06:46] LABS: Opiate Screen,Urine Negative ng/ml (<300)
[2022-05-22 06:47] LABS: Phencyclidine Screen,Urine Negative ng/ml (<25)
[2022-05-22 08:46] VITALS: BP 105/57; PULSE 53; RESP 18; TEMP 36.7; O2SAT 98
--- NOTE | 2022-05-22 13:42 | SW/DCPLANNER ---
Addendum entered by Bronwyn Culver 05/27/22 09:09: Infant cord screen is positive for THC. Addendum entered by Bronwyn Culver 05/22/22 14:22: This case did meet criteria for investigation per Central Intake. I have also reported that infant is now scoring (3) for tremors. Original Note: I received a referral on this patient regarding: positive for THC. Patient tested positive for THC on the following dates: 10/15/21 and at admission 05/22/22. 's urine drug screen from 05/22/22 is also positive for THC. Patient admits to using a THC vape from local gas station. Patient delivered infant male (Mc Shukla 05/22/22). 's father (Jairo Shukla 07/09/86) was present at time of my visit. Patient, Jairo, infant and other child (Betsy Shukla 10/21/12) will reside at [address] [place] [address]. Patient's contact number is [phone]. Patient stated that she has had no past Social Service involved with Betsy. Patient is established with [facility] and is not interested in [facility]. Patient stated that she has the following items at home: crib, carseat,, clothing, diapers and will be bottlefeeding. Patient is expected to discharge home on 05/24/22. I have reported this case to Central Intake ID# [id number].
[2022-05-22 16:10] VITALS: BP 109/60; PULSE 52; RESP 18; TEMP 36.8; O2SAT 98
[2022-05-22 20:08] VITALS: BP 111/62; PULSE 62; RESP 19; TEMP 36.4; O2SAT 96
[2022-05-23 04:07] VITALS: BP 120/75; PULSE 57; RESP 19; TEMP 36.6; O2SAT 99
[2022-05-23 07:00] LABS: Hematocrit 34.4 % (37.0-47.0); Hemoglobin 11.5 g/dL (12.2-16.2)
--- NOTE | 2022-05-23 08:32 | EXP.DC.SUM ---
General Admission date:: 05/22/22 Discharge date: 05/23/22 HPI HPI HPI: PPD # 1 s/p Doing well. She is bottle feeding. Denies pain. Light lochia. Voiding without difficulty and passing flatus. Denies fever/chils, chest pain and shortness of breath. No headaches, vision changes or swelling. Hospital Course Hospital Course Hospital Course: Mrs Nanda Shukla is a 31 yo at 38w2d admitted to [facility] Labor and Delivery for active labor. Upon arrival to L&D she was 9 cm dilated with a bulging bag. GBS negative. She had a normal spontaneous vaginal delivery on 05/22/22 at 0159. She delivered a live baby boy, name Mc, weighing 6 lb 8 oz. APGARs 8, 9. EBL 250 mL. She was doing well . Bottle feeding. Light lochia. Tolerating regular diet. Voiding without difficulty and passing flatus. Denies fever/chills, chest pain and shortness of breath. No headaches, vision changes or swelling. Vital signs stable. Heart regular rate and rhythm. Lungs clear to auscultation. Abdomen soft, nontender. No lower extremity swelling. No calf tenderness. Normal hospital course. 05/22/22: Hgb 15.1, Hct 46.0 05/23/22: Hgb 11.5, Hct 34.4 Exam Data for Last 24 hours Vital signs and Labs for Last 24 Hours: Temp Pulse Resp BP Pulse Ox 97.9 F 57 L 19 120/75 99 05/23/22 04:07 05/23/22 04:07 05/23/22 04:07 05/23/22 04:07 05/23/22 04:07 Laboratory Results - last 24 hr 05/23/22 06:45: Hgb 11.5 L, Hct 34.4 L I & O for Last 24 hours: Intake & Output 05/20/22 05/21/22 05/22/22 05/23/22 23:59 23:59 23:59 23:59 Weight 160 lb Constitutional Constitutional: no acute distress *Routine HEENT Exam Head: Present normocephalic and atraumatic Eye: Absent conjunctivae pink ENT: Present mucous membranes moist *Routine Neck Exam Neck: Present full ROM *Routine Respiratory Exam Respiratory: Present CTA bilaterally and normal respiratory effort *Routine Cardiovascular Exam Cardiovascular: Present RRR *Routine Abdominal Exam Abdominal: Present soft and normoactive bowel sounds; Absent tenderness or distended Comments: Uterine fundus firm and below umbilicus *Routine Rectal Exam Patient deferred: visual exam *Routine Exam Patient deferred: external exam *Routine Extremities Exam Extremities: Present full ROM; Absent edema or calf tenderness *Routine Neurological Exam Neurological: Present alert, oriented X3 and moving all extremities Routine Psychiatric Exam Psychiatric: Present normal affect and cooperative Results Data Completed and Pending Labs on day of discharge: Labs from last 24 hours 05/23/22 06:45 Hgb 11.5 L Hct 34.4 L DS: Diagnosis Discharge Diagnosis (1) with 38 completed weeks gestation: Status: Acute (2) Active labor: Status: Acute (3) Normal delivery at term: Status: Acute (4) GDM (gestational diabetes mellitus): Status: Acute (5) Maternal tobacco use, antepartum: Status: Acute (6) Acute blood loss anemia: Status: Acute (7) Depression: Status: Acute (8) Anxiety: Status: Acute (9) Marijuana use: Status: Acute Meds Home Medications and Allergies Home Medications Medication Instructions Recorded Confirmed Type buspirone 10 mg tablet 10 mg PO BID Anxiety 04/16/22 05/22/22 History blood-glucose meter (Blood Glucose 05/22/22 05/22/22 History Monitoring kit) sertraline 25 mg tablet 25 mg PO DAILY Depression 05/22/22 05/22/22 History ibuprofen 400 mg tablet 800 mg PO Q8HP PRN Mild To 05/23/22 Rx Moderate Pain #40 tabs New Prescriptions to Start Prescriptions: Nanda Hughes Allergies Allergy/AdvReac Type Severity Reaction Status Date / Time latex [LATEX] Allergy Unknown Verified 05/16/22 10:45 Sulfa (Sulfonamide Allergy Unknown Verified 05/16/22 10:45 Antibiotics) [SULFA (SULFONAMIDE ANTIBIOTICS)] Discharge Plan Disposition
[2022-05-23 08:53] VITALS: BP 135/65; PULSE 70; RESP 18; TEMP 36.7; O2SAT 97
== END 2022-05-23 14:15 | disposition home or self-care (01) | DRG 807 ==
LOC: OBOUT 01:15 → OB 01:15
PROVIDERS: Admitting Provider Nurse Practitioner Obstetrics & Gynecology; PCP Family Medicine; Visit Provider Obstetrics & Gynecology
DX: O69.81X0 Labor and delivery complicated by cord around neck, without compression, not applicable or unspecified (principal); Z37.0 Single live birth; F32.A Depression, unspecified; O99.344 Other mental disorders complicating childbirth; F41.9 Anxiety disorder, unspecified; Z3A.37 37 weeks gestation of pregnancy; O76 Abnormality in fetal heart rate and rhythm complicating labor and delivery; O24.429 Gestational diabetes mellitus in childbirth, unspecified control; O99.334 Smoking (tobacco) complicating childbirth; F17.290 Nicotine dependence, other tobacco product, uncomplicated
CPT/HCPCS: 59409; 36415; 59025; 80305; 81001; 82962; 85007; 85014; 85018; 85025; 86850; C9803; J2405; U0003; U0005

== ENCOUNTER 2024-12-09 17:56 | Outpatient (CLI) | payer OTHER, SELFPAY ==
--- OUTSIDE RECORDS SUMMARY | 2024-12-09 17:59 | XMS_ITS | Clinical Summary ---
Author Organization [facility] Address [address] [place] [id number] Care Team Providers Care Agricultural Consultant Name Role Phone Josee Morris APRN Primary Care Provider [phone] Allergies Active Allergy Reactions Criticality Noted Date Comments Latex Rash Low 11/19/2017 Sulfa Antibiotics Rash,Other (See Comments) Low 05/07/2017 Pt say's, it also makes her UTI's worse. Medications SUMAtriptan (Imitrex) 50 MG tabletIndications:I ntractable migraine without aura and without status migrainosus Take one tablet at onset of headache. May repeat dose one time in 2 hours if headache not relieved. 9 tablet 5 3 Active sucralfate (CARAFATE) 1 g tabletIndications:N ausea Take 1 tablet by mouth 4 (Four) Times a Day. 30 tablet 3 Active ondansetron ODT (ZOFRAN-ODT) 4 MG disintegrating tabletIndications:N ausea Place 1 tablet on the tongue Every 8 (Eight) Hours As Needed for Nausea or Vomiting. 20 tablet 3 Active ibuprofen (ADVIL,MOTRIN) 600 MG tabletIndications:C hronic pain of right knee Take 1 tablet by mouth Every 6 (Six) Hours As Needed for Mild Pain. 60 tablet 3 Active nitrofurantoin, macrocrystal-monohy drate, (MACROBID) 100 MG capsule Take 1 capsule by mouth Daily As Needed (as needed after intercourse) . 5 Active amitriptyline (ELAVIL) 25 MG tabletIndications:I rritability TAKE 1 TABLET BY MOUTH EVERY NIGHT 90 tablet 1 Active Active Problems Problem Noted Date Diagnosed Date Anxiety 05/31/2024 Depression 05/31/2024 Electronic cigarette use 05/31/2024 History of one miscarriage 05/31/2024 Marijuana use 05/31/2024 History of renal calculi 05/31/2024 Nausea and vomiting during 05/31/2024 05/31/2024 Screening for genetic disease carrier status 01/2025 Outbursts of anger 04/29/2018 Irritability 04/29/2018 Moderate episode of recurrent major depressive d isorder 05/07/2017 Resolved Problems Problem Noted Date Diagnosed Date Resolved Date Cigarette nicotine dependenc e without complication 02/09/2018 04/29/2018 Encounters Date Type Department Care Team Description 09/14/2024 Refill [facility] [address] [place] [address] Josee Morris, DIRECTOR OF EARLY CHILDHOOD EDUCATION Irritability from Last 3 Months Immunizations Immunization Administration Dates Next Due Hepatitis A 12/13/2017 Tdap 03/12/2022,08/09/2021 Family History Medical History Relation Name Comments Arthritis Father Dad Depression Father Dad Heart disease Father Dad Hypertension Father Dad Anxiety disorder Mother Mom Arthritis Mother Mom Atrial fibrillation Mother Mom Cancer Mother Mom Depression Mother Mom Heart disease Mother Mom Hyperlipidemia Mother Mom Hypertension Mother Mom Miscarriages / Stillbirths Mother Mom Stroke Mother Mom Vision loss Mother Mom Diabetes Paternal Grandmother Granny Relation Name Status Comments Father Dad Alive Mother Mom Alive Paternal Grandmother Granny Social History Tobacco Use Types Packs/Day Years Used Date Smoking Tobacco: Former Cigarettes Smokeless Tobacco: Never Tobacco Cessation:Counseling Given: Not Answered Alcohol Use Standard Drinks/Week Comments Yes 2 (1 standard drink = 0.6 oz pur e alcohol) Socially PHQ-2 Answer Date Recorded Retired PHQ-9: Brief Depression Severity Measure Score 0 08/09/2022 Abuse Screen Answer Date Recorded Unsafe at Home or Work/School Not on file Feels Threatened by Someone? Not on file 02/2023 Does Anyone Keep You from Co ntacting Others or Doint Things Outside the Home? Not on file 01/29/2023 Physical Sign of Abuse Present Not on file 1 Housing Stability Answer Date Recorded Current Living Arrangements Not on file 01/19 Potentially Unsafe Housing Conditions Not on reyna e 01/29/2023 Family and Community Support Answer Suraj e Recorded Help with Day-to-Day Activities Not on file 01/29/2023 Lonely or Isolated Not on file 01/29/2023 Employment Answer Date Recorded Do you want help finding or keeping work or a zack b? Not on file 01/29/2023 Disabilities Answer Date Recorded Concentrating, Remembering, or Making Decisions Difficulty Not on file 01/29/2023 Doing Errands Independently Difficulty Not on fi le 01/29/2023 Education Answer Date Recorded Help with school or training? Not on file Preferred Language Not on file 01/29/2023 PHQ-2 Answer Date Recorded Retired PHQ-9: Brief Depression Severity Measure Score 17 09/08/2023 Comments Unknown Sex and Gender Information Value Date Recorded Sex Assigned at Female 09/05/2024 5:00 PM EDT Legal Sex Female 9:46 AM EST Gender Identity Not on file Sexual Orientation Not on file Occupation Industry Job Start Date Job End Date [employer] [facility] Not on file Not on file Not on file Last Filed Vital Signs Vital Sign Reading Time Taken Comments Blood Pressure 116/68 10/28/2023 7:59 AM EDT Pulse 89 10/28/2023 7:59 AM EDT Temperature 36.7 C (98 F) 10/28/2023 7:59 AM EDT Respiratory Rate 16 10/28/2023 7:59 AM EDT Oxygen Saturation 98% 10/28/2023 7:59 AM EDT Inhaled Oxygen Concentration - - Weight 61.1 kg (134 lb 9.6 oz) 10/28/2023 7:59 A M EDT Height 154.9 cm (5' 1 ) 10/28/2023 7:59 AM EDT Body Mass Index 25.43 10/28/2023 7:59 AM EDT Plan of Treatment Health Maintenance Due Date Last Done Comments Annual Gynecologic Pelvic an d Breast Exam 1990 COVID-19 Vaccine (2023-05 5 season) 2023 06/20/2021 ANNUAL PHYSICAL 10/27/2024 10/28/2023, 08/09/2022 INFLUENZA VACCINE 01/19/2025 PAP SMEAR 06/28/2025 06/28/2022 TDAP/TD VACCINES (3 - Td or Tdap) 03/12/2032 03/12/2022, 08/09/2021 HEPATITIS C SCREENING Completed 08/09/2018 Pneumococcal Vaccine 0-49 Aged Out No longer eligible based on patient's age to complete this topic Insurance [facility] Care Teams Agricultural Consultant Relationship Specialty Start Date End Date Josee Morris APRN [address] [place] [address] PCP - General Nurse Practitioner 10/20/23
--- OUTSIDE RECORDS SUMMARY | 2024-12-09 17:59 | XMS_ITS | Encounter Summary ---
Author Organization [facility] Address [address] [place] [id number] Care Team Providers Care Rn Bsn Name Role Phone Josee Morris APRN Primary Care Provider [phone] Reason for Visit * Reason Comments Med Refill Encounter Details Date Type Department Care Team (Late st Contact Info) Description 12/22/2019 Refill [facility] [address] [place] [address] Aracelis Lowry PA [address] [place], [place] [id number] Social History Tobacco Use Types Packs/Day Years Used Date Smoking Tobacco: Former Cigarettes Smokeless Tobacco: Never Alcohol Use Standard Drinks/Week Comments No 0 (1 standard drink = 0.6 oz pur e alcohol) Comments Unknown Sex and Gender Information Value Date Recorded Sex Assigned at Female 09/05/2024 5:00 PM EDT Legal Sex Female 9:46 AM EST Gender Identity Not on file Sexual Orientation Not on file Occupation Industry Job Start Date Job End Date [employer] Not on file Not on file Not on file documented as of this encounter Plan of Treatment Not on file documented as of this encounter Visit Diagnoses Not on filedocumented in this encounter Care Teams Rn Bsn Relationship Specialty Start Date End Date Josee Morris APRN [address] [facility] [place] [address] PCP - General Nurse Practitioner 10/20/23 documented as of this encounter
[2024-12-09 19:51] LABS: Hepatitis C Ab Qual. W/ RFX NEGATIVE (Negative)
[2024-12-11 08:15] LABS: Hepatitis B Surface Antigen Negative (Negative)
== END 2024-12-09 23:59 | disposition home or self-care (01) ==
LOC: LAB 17:57
PROVIDERS: PCP Obstetrics & Gynecology; Visit Provider Obstetrics & Gynecology
DX: Z01.419 Encounter for gynecological examination (general) (routine) without abnormal findings (principal)
CPT/HCPCS: 86803; 87340; 87389

== ENCOUNTER 2024-12-30 07:33 | Outpatient (CLI) | payer OTHER, SELFPAY ==
--- NOTE | 2024-12-30 07:30 | MR_ITS ---
FINAL REPORT TECHNIQUE: Multiplanar and multisequence imaging of the brain was obtained before and after contrast administration. CLINICAL HISTORY: abnormal head ct FINDINGS: Brain parenchymal: There is no mass effect or midline shift. There are no areas of abnormal signal intensity.The cerebellum and brainstem are without acute abnormality. Ventricles: The ventricles are symmetric in size and configuration without hydrocephalus. Extra-axial spaces: No extra-axial fluid collections. Diffusion imaging: No areas of restricted diffusion to suggest acute infarct. Flow voids: Flow voids within the major intracranial vessels are preserved. Soft tissues: Soft tissues are without acute abnormality. Post contrast imaging: No abnormal enhancement. IMPRESSION: No acute intracranial abnormality and no pathologic contrast enhancement. Reviewed, Interpreted and Dictated by Carlee Muñiz MD Transcribed by Shahnaz Zabala Authenticated and [facility]
--- OUTSIDE RECORDS SUMMARY | 2024-12-30 07:36 | XMS_ITS | Clinical Summary ---
Author Organization [facility] Address [address] [place] [id number] Care Team Providers Care Middle School Tutor Name Role Phone Josee Morris APRN Primary Care Provider [phone] Allergies Active Allergy Reactions Criticality Noted Date [...] nicotine dependenc e without complication 02/09/2018 04/29/2018 Immunizations Immunization Administration Dates Next Due Hepatitis [...] Gynecologic Pelvic an d Breast Exam 1988 ANNUAL PHYSICAL 10/27/2024 10/28/2023, 08/09/2022 COVID-19 Vaccine (2 - 2024-2 6 season) 2024 06/20/2021 INFLUENZA VACCINE 01/19/2025 PAP SMEAR 06/28/2025 06/28/2022 TDAP/TD VACCINES (3 - Td or Tdap) 03/12/2032 03/12/2022, 08/09/2021 HEPATITIS C SCREENING Completed 08/09/2018 Pneumococcal Vaccine 0-49 Aged Out No longer eligible based on patient's age to complete this topic Insurance [facility] Care Teams Middle School Tutor Relationship Specialty Start Date End Date Josee Morris APRN [address] [place] [address] PCP - General Nurse Practitioner 10/20/23
--- OUTSIDE RECORDS SUMMARY | 2024-12-30 07:36 | XMS_ITS | Encounter Summary ---
Author Organization [facility] Address [address] [place] [phone] Care Team Providers Care In House Counsel Name Role Phone Josee Morris APRN Primary Care Provider Reason for Visit * Reason Comments Med Refill Encounter Details Date Type Department Care Team (Late st Contact Info) Description 12/22/2019 Refill [facility] [address] [place] [address] Aracelis Lowry PA [address] [place], [place] [phone] Social History Tobacco Use Types Packs/Day Years [...] on filedocumented in this encounter Care Teams In House Counsel Relationship Specialty Start Date End Date Josee Morris APRN [address] [facility] [place] [address] PCP - General Nurse Practitioner 10/20/23 documented as of this encounter
[2024-12-30] MEDS: GADOTERIDOL INJ 20ML SYRINGE 14 ML IV (08:33)
[2024-12-30] MEDS: SODIUM CHLORIDE 0.9% 10ML SYR (RAD ONLY) 10 ML IV (08:33)
== END 2024-12-30 23:59 | disposition home or self-care (01) ==
LOC: RAD 07:34
PROVIDERS: PCP Family Medicine; Visit Provider Family Medicine
DX: G89.29 Other chronic pain (principal); R51.9 Headache, unspecified; R93.0 Abnormal findings on diagnostic imaging of skull and head, not elsewhere classified
CPT/HCPCS: 70553; A9576